=== PATIENT | male | born 1970 | race Caucasian/White ===

== ENCOUNTER 2021-07-10 08:17 | Emergency (ER) | payer BC ==
[~2021-07-10] VITALS: Ht 188 cm; Wt 152.4 kg
[2021-07-10] MEDS ORDERED: CLEOCIN HCL300 MG PO (08:55)
== END 2021-07-10 09:05 | disposition home or self-care (01) ==
LOC: ED 08:17
DX: I88.9 Nonspecific lymphadenitis, unspecified (principal); E11.9 Type 2 diabetes mellitus without complications; I10 Essential (primary) hypertension; E78.5 Hyperlipidemia, unspecified; Z88.0 Allergy status to penicillin
CPT/HCPCS: 99283